=== PATIENT | female | born 1945 | race Caucasian/White ===

== ENCOUNTER 2022-05-16 20:29 | Emergency (ER) | payer OTHER, SELFPAY ==
[2022-05-16 20:30] VITALS: BP 190/99; PULSE 98; RESP 16; TEMP 35.6; O2SAT 98; BMI 21.7
--- NOTE | 2022-05-16 20:43 | DI.CT.S_ITS ---
PROCEDURE: CT HEAD/BRAIN WO CON INDICATIONS: fall, hematoma. Dementia TECHNIQUE: Noncontrast 4.5 mm thick angled axial sections acquired from the foramen magnum to the vertex, with coronal and sagittal reformats. For radiation dose reduction, the following was used: automated exposure control, adjustment of mA and/or kV according to patient size. COMPARISON: [facility], CT, CT HEAD WITHOUT CONTRAST, 04/25/2022, 21:18. [facility], CT, CT CERVICAL SPINE WO CON, 05/16/2022, 20:46. [facility], CT, CT HEAD WITHOUT CONTRAST, 05/01/2022, 16:15. FINDINGS: Image quality: Excellent. CSF spaces: Basal cisterns are patent. No extra-axial fluid collections. The ventricles are symmetric in size and shape. Brain: No intracranial bleeds or masses. There is cerebral volume loss for age, with resultant ventricular and sulcal prominence. There are periventricular and deep white matter chronic small vessel ischemic changes. There is intracranial internal carotid artery atherosclerosis. Skull and face: There is a scalp hematoma seen posteriorly and on the left, as on series 2, image 11. No associated calvarial fracture can be seen. Calvarium and visualized facial bones appear intact, without suspicious lesions. Sinuses: Visualized sinuses and mastoids are clear. IMPRESSION: No acute intracranial hemorrhage is seen. No acute intracranial process is seen. There is a left posterior scalp hematoma seen, without associated calvarial fracture. Dictated by: Sherman Moreno M.D. on 05/16/2022 at 20:11 Approved by: Sherman Moreno M.D. on 05/16/2022 at 20:13
--- NOTE | 2022-05-16 20:43 | DI.CT.S_ITS ---
PROCEDURE: CT CERVICAL SPINE WO CON INDICATIONS: fall, hematoma. Dementia TECHNIQUE: Noncontrast 3 mm thick sections acquired from the skull base to the T4 level. Sagittal and coronal reformats were then constructed. For radiation dose reduction, the following was used: automated exposure control, adjustment of mA and/or kV according to patient size. COMPARISON: [facility], CT, CT HEAD/BRAIN WO CON, 05/16/2022, 20:46. FINDINGS: Image quality: This examination is somewhat limited by quantum mottle artifact. Bones: No fractures or dislocations. Visualized superior ribs are intact. Focal degenerative change is seen involving the C1-C2 interface anteriorly. There is moderate to severe disc space narrowing seen at C5-C6 and C6-C7, with associated endplate irregularity and sclerosis. Minimal anterolisthesis is seen at C6-C7. Soft tissues: Prevertebral soft tissues are normal in thickness. No paravertebral hematomas. No apical pneumothoraces. Atherosclerotic calcification is noted. Thyroid lesions are seen, including a 1.4 cm right thyroid lesion. There is a presumed sebaceous cyst seen posteriorly and inferiorly and to the left of the midline, as on series three image 32, measuring 1.5 cm. IMPRESSION: Negative for fracture. Cervical spine degenerative changes are seen, which are worst inferiorly. Additional findings: Thyroid lesions, measuring up to 1.4 cm. 1.5 cm presumed sebaceous cyst seen posteriorly and on the left Dictated by: Sherman Moreno M.D. on 05/16/2022 at 20:13 Approved by: Sherman Moreno M.D. on 05/16/2022 at 20:15
--- NOTE | 2022-05-16 22:53 | ED.FALL ---
HPI - Fall General Chief Complaint: Fall Stated Complaint: Fall Time Seen by Provider: 05/16/22 22:53 Mode of arrival: Family Vehicle History of Present Illness HPI Narrative: 77-year-old woman with a history of progressive dementia, diabetes, hypertension currently lives with her son who has been her caregiver for the last number of years. Settled her in bed this evening and then heard a loud noise. FoundHer on the floor having rolled out of bed hit her head on the wall with a dent in the wall itself. There was no loss of consciousness, no change to cognitive or behavioral baseline she was complaining of some head and neck pain. He brings her in for further evaluation. She is DNR DNI and in conjunction with recent primary care visit has recently stopped the majority of her medications. In light of goals for comfort, we negotiated checking head and neck CT scans but no additional workup at this time. Related Data Allergies Allergy/AdvReac Type Severity Reaction Status Date / Time No Known Drug Allergies Allergy Verified 05/16/22 20:37 Patient History Medical History (Updated 05/16/22 @ 23:08 by Kamryn Burden MD) Dementia Diabetes DNR (do not resuscitate) Hypertension Social History Smoking Status: Former smoker Smoking Status: Former smoker Substance Use Type: does not use Exam Initial Vital Signs Initial Vital Signs: Vital Signs Temperature 96.0 F L 05/16/22 20:30 Pulse Rate 98 H 05/16/22 20:30 Respiratory Rate 16 05/16/22 20:30 Blood Pressure 190/99 H 05/16/22 20:30 Pulse Oximetry 98 05/16/22 20:30 Oxygen Delivery Method Room Air 05/16/22 20:30 General: older-appearing woman with dementia, not oriented to person time and place. Appears to be in mild pain. Well-nourished well-developed HEENT: dry mucous membranes, normal sclera with reactive pupils, tender hematoma without abrasion or bleeding to the left occiput Neck: no midline tenderness, supple Respiratory: Lungs are clear to auscultation, no wheezing no rales no rhonchi. Full and symmetrical air movement Cardiac: Regular rate and rhythm no murmurs no bruits Abdomen: Soft, nontender, good bowel tones, no flank pain Skin: quite thin butWarm and dry, no rashes Neurologic: cognitive dementia baseline, globally weak moving all extremities Extremities: No trauma, well perfused Course Orders Ordered: Discontinued Medications Acetaminophen (Acetaminophen 325 Mg Tablet) 975 mg PO NOW ONE Stop: 05/16/22 23:02 Last Admin: 05/16/22 23:31 Dose: Not Given Documented By: JAIMIE Vital Signs Vital signs: Vital Signs - 8 hr 05/16/22 22:54 05/16/22 22:55 05/16/22 22:55 Temperature Pulse Rate 94 H 93 H Respiratory Rate 15 15 Blood Pressure 228/98 H Pulse Oximetry 97 Oxygen Delivery Method 05/16/22 23:00 05/16/22 23:00 05/16/22 23:34 Temperature 97.9 F Pulse Rate 81 88 Respiratory Rate 22 18 Blood Pressure 198/84 H 194/98 H Pulse Oximetry 97 Oxygen Delivery Method Room Air MDM - Fall MDM Narrative Medical decision making narrative: CC: Fall onto bed with head injury. This is new acute issue uncertain prognosis Complicating co-morbidities: Progressive dementia Corroborating data: Data collected from: patient, son who is her caregiver Social determinants of health that may influence the patients condition: Progressive dementia Medical records reviewed: Primary care notes Differential considered: Skull fracture, intracranial hemorrhage, intraparenchymal hemorrhage Exam documented above, pertinent findings include: Contusion to the occiput without bleeding. Significant dementia Imaging studies independently reviewed: CT scan of head and cervical spine do not show any acute injuries Discussion: With shared decision-making with her son and caregiver we chose to proceed only with CT scanning of the head and the neck. She will follow-up with her primary care doctor. Disposition: see below, along with detailed discharge instructions that have been reviewed with patient as well as indications for ED re-evaluation and additional outpatient follow up Discharge Plan Departure Patient Disposition: Home Clinical Impression: Fall Qualifiers: Encounter type: initial encounter Qualified Code(s): W19.XXXA - Unspecified fall, initial encounter Contusion of head Qualifiers: Encounter type: initial encounter Contusion of head detail: scalp Qualified Code(s): S00.03XA - Contusion of scalp, initial encounter Activity Restrictions/Additional Instructions: thank you for coming in today CT scans of the head and cervical spine were unremarkable. No evidence of bleeding or fractures. Please use 2 Tylenol every 6 hours if she seems to be complaining of pain or exhibiting pain behaviors. Regarding the concerns for elevated blood pressure and decline in behavior and decreased behavioral changes, please do follow-up with her primary care provider to decide if all of the medications that were abruptly discontinued may need some minor re-evaluation If you find that you are getting worse or develop any new symptoms, please feel free to return to the emergency department for further evaluation. Referrals: Mandeep Salamanca MD [Primary Care Provider] - Stand Alone Forms: Patient Portal/API
[2022-05-16 22:54] VITALS: PULSE 94; RESP 15; O2SAT 97
[2022-05-16 22:55] VITALS: BP 228/98; PULSE 93; RESP 15
[2022-05-16 23:00] VITALS: BP 198/84; PULSE 81; RESP 22
[2022-05-16 23:34] VITALS: BP 194/98; PULSE 88; RESP 18; TEMP 36.6; O2SAT 97
== END 2022-05-16 23:35 | disposition home or self-care (01) ==
PROVIDERS: Emergency Provider Emergency Medicine; PCP Family Medicine
DX: S00.03XA Contusion of scalp, initial encounter (principal); A52.17 General paresis; W06.XXXA Fall from bed, initial encounter
CPT/HCPCS: 70450; 72125; 99283; 99284